=== PATIENT | female | born 1995 | race Caucasian/White ===

== ENCOUNTER 2016-07-06 12:53 | Emergency (ER) | payer MEDICAID ==
[2016-07-06] MEDS ORDERED: Sodium Chloride 0.9% 1,000 ML IV STA (14:19)
[2016-07-06] MEDS ORDERED: Sodium Chloride 0.9% 10 ML Syringe FLUSH PRN (14:19)
[2016-07-06] MEDS ORDERED: HYDROmorphone 0.5 MG/0.5 ML Syringe IVPUSH ONE ×2 (14:21→16:43)
[2016-07-06] MEDS ORDERED: Ondansetron 4 MG/2 ML SDV IVPUSH ONE (14:21)
--- NOTE | 2016-07-06 14:27 | EDM.PDOC ---
ED HPI RENAL/ - General Chief Complaint: Gastrointestinal Problem Stated Complaint: THROWING UP AFTER TONSILECTOMY Time Seen by Provider: 07/06/16 14:16 Source: Reports: Patient, RN notes reviewed History Limitations: Reports: No limitations - History of Present Illness INITIAL COMMENTS - FREE TEXT/NARRATIVE: 21-year-old female presents emergency department a complaint of nausea and vomiting she recently underwent tonsillectomy was prescribed an antiemetic as well as liquid hydrocodone unfortunately because of the nausea and vomiting she' s not been able to keep the medication for pain down this particular event has been ongoing for last 3 days, denies any fevers no shortness of breath or chest pain - Related Data Allergies/ADRs: Allergies Allergy/AdvReac Type Severity Reaction Status Date / Time Sulfa (Sulfonamide Allergy Rash Verified 07/06/16 13:52 Antibiotics) Home Meds: Home Meds Albuterol Sulfate [Albuterol Sulfate HFA] 2 puff INH ASDIRECTED PRN 06/11/13 [ History] Ethinyl Estradiol/Drospirenone [Drospirenone-Ee 3-0.02 mg Tab] 1 tab PO DAILY [History] Past Medical History HEENT History: Reports: Other (see below) Other HEENT History: strep throat, chronic cryptitis of tonsil Cardiovascular History: Reports: Syncope 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: Reports: Asthma 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: Neurological History: Reports: Seizure Dermatologic History: Reports: Other (see below) Other Dermatologic History: red, itchy skin to face with stress - Infectious Disease History Infectious Disease History: Reports: Chicken pox - Past Surgical History HEENT Surgical History: Reports: Adenoidectomy, Tonsillectomy Female Surgical History: Reports: Other (see below) Other Female Surgeries/Procedures: galactorrhea of left breast, chlamydia infection Social & Family History - Tobacco Use Smoking Status *Q: Never Smoker Years of Tobacco use: 7 Packs/Tins Daily: 0.2 Used Tobacco, but Quit: Yes Month Tobacco Last Used: June Second Hand Smoke Exposure: No - Caffeine Use Caffeine Use: Reports: Coffee, Soda - Alcohol Use Days Per Week of Alcohol Use: 0 - Recreational Drug Use Recreational Drug Use: No - Living Situation & Occupation Living situation: Reports: with significant other (lives at [place], [place].) ED ROS GENERAL - Review of Systems Review Of Systems: See Below Constitutional: Denies: fever, chills HEENT: Reports: Throat pain, Throat swelling Respiratory: Reports: no symptoms Cardiovascular: Reports: No symptoms GI/Abdominal: Reports: Nausea, Vomiting. Denies: Abdominal pain : Reports: no symptoms Musculoskeletal: Reports: no symptoms Skin: Reports: no symptoms ED EXAM, RENAL/ - Physical Exam Exam: See Below Text/Narrative:: General: Female, in mild discomfort secondary to nausea vomiting, alert and oriented x3 HEENT: head is atraumatic normocephalic, eyes pupils equal round reactive to light and accommodation sclera clear no conjunctivitis appreciated. Ears tympanic membranes clear and mahmood landmarks and light reflex are present bilaterally canals are clear. Nose no septal deviation, nares are clear, no blood present. Mouth mucosa is moist and pink, scarring appreciated in the posterior pharynx no active bleeding, tongue is midline, dentition is intact. Neck: Supple no thyromegaly no tracheal deviation. Nodes: Cervical nodes subclavicular nodes nontender no palpable lymphadenopathy noted. Lungs: clear to auscultation bilaterally with symmetrical respirations, no adventitious noise appreciated. CV: Regular rate and rhythm S1 and S2 appreciated no murmurs rubs or gallops noted. Abdomen: Soft, nontender, no palpable masses or organomegaly appreciated, no distention no guarding bowel sounds are present, Course - Vital Signs Last Recorded V/S: Last Vital Signs Temp 99.1 F 07/06/16 13:55 Pulse 87 07/06/16 16:19 Resp 14 07/06/16 16:19 BP 126/70 07/06/16 16:19 Pulse Ox 99 07/06/16 16:19 - Orders/Labs/Meds Orders: Active Orders 24 hr Category Date Time Status Peripheral IV Care [RC] . DIRECTED Care 07/06/16 14:19 Active Sodium Chloride 0.9% [Normal Saline] 1,000 ml Med 07/06/16 16:15 Active IV ASDIRECTED Sodium Chloride 0.9% [Saline Flush] Med 07/06/16 14:19 Active 10 ml FLUSH ASDIRECTED PRN Peripheral IV Insertion Adult [OM.PC] Urgent Oth 07/06/16 14:19 Ordered Medication Orders Sodium Chloride (Normal Saline) 1,000 mls @ 999 mls/hr IV ASDIRECTED ELBA Last Admin: 07/06/16 16:21 Dose: 999 mls/hr Sodium Chloride (Saline Flush) 10 ml FLUSH ASDIRECTED PRN PRN Reason: Keep Vein Open Labs: Laboratory Tests 07/06/16 07/06/16 07/06/16 Range/Units 14:31 14:31 17:08 WBC 7.2 (4.5-11.0) K/uL RBC 4.24 (3.30-5.50) M/uL Hgb 12.2 (12.0-15.0) g/dL Hct 36.4 (36.0-48.0) % MCV 86 (80-98) fL MCH 29 (27-31) pg MCHC 34 (32-36) % Plt Count 280 (150-400) K/uL Neut % (Auto) 67 H (36-66) % Lymph % (Auto) 18 L (24-44) % [place] % (Auto) 14 H (2-6) % Eos % (Auto) 1 L (2-4) % Baso % (Auto) 0 (0-1) % Sodium 138 L (140-148) mmol/L Potassium 4.0 (3.6-5.2) mmol/L Chloride 100 (100-108) mmol/L Carbon Dioxide 26 (21-32) mmol/L Anion Gap 16.0 H (5.0-14.0) mmol/L BUN 7 (7-18) mg/dL Creatinine 0.8 (0.6-1.0) mg/dL Est Cr Clr Drug Dosing 103.26 mL/min Estimated GFR (MDRD) > 60 (>60) Glucose 79 (74-106) mg/dL Calcium 8.6 (8.5-10.1) mg/dL Urine Color Yellow Urine Appearance Slightly cloudy Urine pH 6.0 (4.5-8.0) Ur Specific [place] 1.020 (1.008-1.030) Urine Protein Negative (NEGATIVE) mg/dL Urine Glucose (UA) Normal (NEGATIVE) mg/dL Urine Ketones 50 H (NEGATIVE) mg/dL Urine Occult Blood Moderate (NEGATIVE) Urine Nitrite Negative (NEGATIVE) Urine Bilirubin Negative (NEGATIVE) Urine Urobilinogen Normal (NORMAL) mg/dL Ur Leukocyte Esterase Negative (NEGATIVE) Urine RBC Not seen (0-5) Urine WBC 0-5 (0-5) Ur Epithelial Cells Many Amorphous Sediment Not seen Urine Bacteria Moderate Urine Mucus Not seen Meds: Medications Generic Name Dose Route Start Last Admin Trade Name Tegan PRN Reason Stop Dose Admin Sodium Chloride 1,000 mls @ 999 mls/hr 07/06/16 16:15 07/06/16 16:21 Normal Saline IV 999 mls/hr ASDIRECTED ELBA Administration Sodium Chloride 10 ml 07/06/16 14:19 Saline Flush FLUSH ASDIRECTED PRN Keep Vein Open Discontinued Medications Generic Name Dose Route Start Last Admin Trade Name Tegan PRN Reason Stop Dose Admin Hydromorphone HCl 0.5 mg 07/06/16 14:21 07/06/16 15:00 Dilaudid IVPUSH 07/06/16 14:22 0.5 mg ONETIME ONE Administration Hydromorphone HCl 0.5 mg 07/06/16 16:43 07/06/16 17:35 Dilaudid IVPUSH 07/06/16 16:44 0.5 mg ONETIME ONE Administration Sodium Chloride 1,000 mls @ 999 mls/hr 07/06/16 14:19 07/06/16 14:58 Normal Saline IV 07/06/16 15:19 999 mls/hr .BOLUS STA Administration Ondansetron HCl 4 mg 07/06/16 14:21 07/06/16 14:59 Zofran IVPUSH 07/06/16 14:22 4 mg ONETIME ONE Administration Departure - Departure Time of Disposition: 18:04 Disposition: Home, Self-Care 01 Condition: good Clinical Impression: Nausea & vomiting Qualifiers: Vomiting type: unspecified Vomiting Intractability: non-intractable Qualified Code(s): R11.2 - Nausea with vomiting, unspecified Forms: ED Department Discharge Additional Instructions: continue with your medications prescribed by surgery, keep your follow up appointment with surgery - My Orders Last 24 Hours: My Active Orders 07/06/16 14:19 Peripheral IV Care [RC] . DIRECTED Sodium Chloride 0.9% [Saline Flush] 10 ml FLUSH ASDIRECTED PRN Peripheral IV Insertion Adult [OM.PC] Urgent 07/06/16 16:15 Sodium Chloride 0.9% [Normal Saline] 1,000 ml IV ASDIRECTED - Assessment/Plan Last 24 Hours: My Active Orders 07/06/16 14:19 Peripheral IV Care [RC] . DIRECTED Sodium Chloride 0.9% [Saline Flush] 10 ml FLUSH ASDIRECTED PRN Peripheral IV Insertion Adult [OM.PC] Urgent 07/06/16 16:15 Sodium Chloride 0.9% [Normal Saline] 1,000 ml IV ASDIRECTED Plan: Assessment Acuity = acute Site and laterality = nausea and vomiting complicated patient with postop day 3 tonsillectomy Etiology = difficulty keeping pain medication and antiemetics down secondary to surgery Manifestations = none Location of injury = home Lab values = CBC, BMP unremarkable, urinalysis unremarkable Plan should significant improvement with 2 L of fluid Dilaudid provided for pain control the plan is to discharge home resume her postoperative medications keep her followup appointment with surgery Patient was in agreement with the plan all questions were answered, they were instructed to return to the emergency department or call for worsening symptoms. This note was dictated using [place] voice recognition software please call with any questions.
[2016-07-06] MEDS ORDERED: Sodium Chloride 0.9% 1,000 ML IV SCH (16:15)
[2016-07-06 16:24] VITALS: BP 126/70
== END 2016-07-06 18:15 | disposition home or self-care (01) ==
LOC: JP.ED 12:53
DX: R11.2 Nausea with vomiting, unspecified (principal); J45.909 Unspecified asthma, uncomplicated; Z88.2 Allergy status to sulfonamides; Z79.899 Other long term (current) drug therapy; Z98.890 Other specified postprocedural states
CPT/HCPCS: 36415; 80048; 81001; 85025; 96361; 96374; 96375; 99284; J1170; J2405; J7040

== ENCOUNTER 2016-07-08 23:42 | Emergency (ER) | payer MEDICAID ==
[2016-07-09 00:06] VITALS: BP 149/72
[2016-07-09] MEDS ORDERED: HYDROmorphone 1 MG/ML Syringe IVPUSH ONE (00:39)
[2016-07-09] MEDS ORDERED: Ondansetron 4 MG/2 ML SDV IVPUSH ONE (00:40)
[2016-07-09] MEDS ORDERED: Sodium Chloride 0.9% 1,000 ML IV SCH (00:45)
--- NOTE | 2016-07-09 00:48 | EDM.PDOC ---
ED HPI ENT - General Chief Complaint: ENT Problem Stated Complaint: COMPLICATIONS FROM SURGERY Time Seen by Provider: 07/09/16 00:16 Source: Reports: Patient History Limitations: Reports: No limitations - History of Present Illness INITIAL COMMENTS - FREE TEXT/NARRATIVE: Postop pain: Is a 20-year-old female presents emergency room with complaints of severe throat pain secondary to her tonsillectomy on July 01. She reports sharp pain has tried to drink fluids but it burned, pain so intense she decided to come to ER for evaluation. She has approximately 100 mL of bile like emesis in emesis bag. She was seen on the with similar concerns. 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) - Related Data Allergies/ADRs: Allergies Allergy/AdvReac Type Severity Reaction Status Date / Time hydrocodone Allergy Rash Verified 07/09/16 00:09 Sulfa (Sulfonamide Allergy Rash Verified 07/09/16 00:06 Antibiotics) Home Meds: Home Meds Albuterol Sulfate [Albuterol Sulfate HFA] 2 puff INH ASDIRECTED PRN 06/11/13 [ History] Ethinyl Estradiol/Drospirenone [Drospirenone-Ee 3-0.02 mg Tab] 1 tab PO DAILY [History] Acetaminophen/Codeine [Tylenol/Codeine 120-12 MG/5 ML] 1 dose PO ASDIRECTED 06/26 [History] Ondansetron [Ondansetron ODT] 1 tab SL ASDIRECTED 07/09/16 [History] Past Medical History - Past Health History Medical/Surgical History: Denies Medical/Surgical History HEENT History: Reports: Other (see below) Other HEENT History: strep throat, chronic cryptitis of tonsil Cardiovascular History: Reports: Syncope 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: Reports: 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: Neurological History: Reports: Seizure Dermatologic History: Reports: Other (see below) Other Dermatologic History: red, itchy skin to face with stress - Infectious Disease History Infectious Disease History: Reports: Chicken pox - Past Surgical History HEENT Surgical History: Reports: Adenoidectomy, Tonsillectomy Female Surgical History: Reports: Other (see below) Other Female Surgeries/Procedures: galactorrhea of left breast, chlamydia infection Social & Family History - Tobacco Use Smoking Status *Q: Never Smoker Years of Tobacco use: 7 Packs/Tins Daily: 0.2 Used Tobacco, but Quit: Yes Month Tobacco Last Used: June Second Hand Smoke Exposure: No - Caffeine Use Caffeine Use: Reports: Coffee, Soda - Alcohol Use Days Per Week of Alcohol Use: 0 - Recreational Drug Use Recreational Drug Use: No - Living Situation & Occupation Living situation: Reports: with significant other (lives at [facility]) ED ROS ENT - Review of Systems Review Of Systems: See Below Constitutional: Reports: fatigue, decreased appetite HEENT: Reports: Throat pain (Tonsillectomy on July 01) Respiratory: Reports: no symptoms Cardiovascular: Reports: No symptoms Endocrine: Reports: no symptoms GI/Abdominal: Reports: Nausea : Reports: no symptoms Musculoskeletal: Reports: no symptoms Neurological: Reports: no symptoms Psychiatric: Reports: No symptoms Hematologic/Lymphatic: Reports: no symptoms Immunologic: Reports: no symptoms ED EXAM, ENT - Physical Exam Exam: See Below Exam Limited By: Other (Crying) General Appearance: alert, mild distress Eye Exam: bilateral eye: normal inspection Ears: normal external exam, normal canal, hearing grossly normal, normal TMs Nose: normal inspection, normal mucousa, no blood Mouth/Throat: Pharyngeal erythema (Post surgery) Head: atraumatic, normocephalic Neck: tender lateral Respiratory/Chest: no respiratory distress, lungs clear, normal breath sounds, no accessory muscle use, chest non-tender Cardiovascular: normal peripheral pulses, regular rate, rhythm, no edema, no gallop, no JVD, no murmur, no rub GI/Abdominal: soft Back: normal inspection, full range of motion Extremities: normal inspection, normal range of motion, non-tender, no pedal edema, normal capillary refill Neurological: alert, oriented, CN II-XII intact, normal cognition, normal gait, normal reflexes, no motor/sensory deficits Psychiatric: tearful Skin: Warm, Dry, Intact, Normal color, No rash Lymphatic: no adenopathy Course - Vital Signs Last Recorded V/S: Last Vital Signs Temp 37.7 C 07/09/16 00:05 Pulse 95 07/09/16 00:05 Resp 16 03/02/17 00:05 BP 149/72 H 07/09/16 00:05 Pulse Ox 98 07/09/16 00:05 - Orders/Labs/Meds Meds: Medications Discontinued Medications Generic Name Dose Route Start Last Admin Trade Name Tegan PRN Reason Stop Dose Admin Hydromorphone HCl 1 mg 07/09/16 00:39 07/09/16 00:55 Dilaudid IVPUSH 07/09/16 00:40 1 mg ONETIME ONE Administration Sodium Chloride 1,000 mls @ 999 mls/hr 07/09/16 00:45 07/09/16 00:54 Normal Saline IV 999 mls/hr ASDIRECTED ELBA Administration Ondansetron HCl 4 mg 07/09/16 00:40 07/09/16 00:53 Zofran IVPUSH 07/09/16 00:41 4 mg ONETIME ONE Administration - Re-Assessments/Exams Free Text/Narrative Re-Assessment/Exam: 07/09/16 00:50 Normal saline 1 L over one hour, Dilaudid 1 mg IV, Zofran 4 mg IV. Will have her significant other transport her back to her home. Departure - Departure Time of Disposition: 01:55 Disposition: Home, Self-Care 01 Condition: good Clinical Impression: Post-op pain Nausea & vomiting Qualifiers: Vomiting type: unspecified Vomiting Intractability: non-intractable Qualified Code(s): R11.2 - Nausea with vomiting, unspecified Referrals: PCP,None [Primary Care Provider] - Forms: ED Department Discharge Care Plan Goals: Post -op Pain due to Tonsillectomy and adnoids removed; -IV fluids 1 L and Dilaudid 1 mg IV Zofran 4 mg IV -Advised return home, rest, push fluids, take her medications as prescribed. Followup with primary care providers or ENT as scheduled Return to clinic or ER if not improved or symptoms worsen
== END 2016-07-09 01:55 | disposition home or self-care (01) ==
LOC: JP.ED 23:42
DX: R07.0 Pain in throat (principal); G89.18 Other acute postprocedural pain; R11.2 Nausea with vomiting, unspecified; J45.909 Unspecified asthma, uncomplicated; Z79.899 Other long term (current) drug therapy; Z88.2 Allergy status to sulfonamides; Z88.5 Allergy status to narcotic agent; Z98.890 Other specified postprocedural states
CPT/HCPCS: 96374; 96375; 99283; J1170; J2405; J7040

== ENCOUNTER 2017-06-27 18:04 | Emergency (ER) | payer MEDICAID ==
[2017-06-27 18:18] VITALS: BP 120/67
[2017-06-27] MEDS ORDERED: Sodium Chloride 0.9% 10 ML Syringe FLUSH PRN (18:56)
[2017-06-27] MEDS ORDERED: Prochlorperazine 10 MG/2 ML SDV IVPUSH ONE (18:58)
[2017-06-27] MEDS ORDERED: Sodium Chloride 0.9% 1,000 ML IV SCH (19:00)
--- NOTE | 2017-06-27 20:25 | EDM.PDOC ---
ED HPI GENERAL MEDICAL PROBLEM - General Chief Complaint: Gastrointestinal Problem Stated Complaint: VOMITING Time Seen by Provider: 06/27/17 20:12 Source of Information: Reports: Patient History Limitations: Reports: No Limitations - History of Present Illness INITIAL COMMENTS - FREE TEXT/NARRATIVE: This lady comes in complaining of vomiting. She's and by her dates she is now about 11 weeks gestation. She doesn't really think she is that for a long because of blood test was done a while back and apparently had hCG level was done which would indicate she was at maybe 6 weeks or so. She says sometimes her menstrual periods are regular and sometimes they are irregular therefore her dates might not be completely reliable. She's been vomiting everything she eats or drinks for the past 4 days. She feels like she might be dehydrated because sometimes when she stands she gets dizzy for a while. She is here expecting some IV fluids. - Related Data Allergies Allergy/AdvReac Type Severity Reaction Status Date / Time hydrocodone Allergy Rash Verified 06/27/17 18:36 Sulfa (Sulfonamide Allergy Rash Verified 06/27/17 18:36 Antibiotics) Home Meds: Home Meds Albuterol Sulfate [Albuterol Sulfate HFA] 2 puff INH ASDIRECTED PRN 06/11/13 [ History] Ondansetron [Ondansetron ODT] 1 tab SL ASDIRECTED 07/09/16 [History] Vits #93/Iron Fum/FA [ Formula Tablet] 1 tab PO DAILY 06/27/17 [History] Sertraline [Zoloft] 1 tab PO DAILY 06/27/17 [History] Past Medical History - Past Health History Medical/Surgical History: Denies Medical/Surgical History HEENT History: Reports: Other (See Below) Other HEENT History: strep throat, chronic cryptitis of tonsil Cardiovascular History: Reports: Syncope 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: Reports: Asthma 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: Neurological History: Reports: Seizure Psychiatric History: Reports: Anxiety, Depression Dermatologic History: Reports: Other (See Below) Other Dermatologic History: red, itchy skin to face with stress - Infectious Disease History Infectious Disease History: Reports: Chicken Pox - Past Surgical History HEENT Surgical History: Reports: Tonsillectomy Social & Family History - Tobacco Use Smoking Status *Q: Former Smoker Years of Tobacco use: 7 Packs/Tins Daily: 0.2 Used Tobacco, but Quit: Yes Month Tobacco Last Used: june 2017 Second Hand Smoke Exposure: No - Caffeine Use Caffeine Use: Reports: Coffee, Soda - Alcohol Use Days Per Week of Alcohol Use: 0 - Recreational Drug Use Recreational Drug Use: No - Living Situation & Occupation Living situation: Reports: with Significant Other ED ROS GENERAL - Review of Systems Review Of Systems: See Below Constitutional: Denies: Fever, Chills HEENT: Reports: No Symptoms Respiratory: Reports: No Symptoms Cardiovascular: Reports: No Symptoms Endocrine: Reports: No Symptoms GI/Abdominal: Reports: Vomiting. Denies: Abdominal Pain, Diarrhea : Reports: No Symptoms Musculoskeletal: Denies: Muscle Pain Skin: Reports: No Symptoms Neurological: Reports: No Symptoms Psychiatric: Reports: No Symptoms ED EXAM - Physical Exam Exam: See Below Exam Limited By: No Limitations General Appearance: Alert, WD/WN, No Apparent Distress Eye Exam: Bilateral Eye: Normal Inspection Throat/Mouth: Normal Oropharynx Neck: Normal Inspection Respiratory/Chest: Lungs Clear Cardiovascular: Regular Rate, Rhythm GI/Abdominal Exam: Normal Bowel Sounds, Non-Tender, Other (The nurse placed a D[place]one on the patient and was unable to hear a heartbeat. I offered to check this myself but the patient said that all she wanted was some IV fluid and didn't care to have that done again) Extremities: Normal Inspection Neurological: Alert, Oriented, Sensory/Motor Deficit Skin Exam: Warm, Dry Course - Vital Signs Last Recorded V/S: Last Vital Signs Temp 36.3 C 06/27/17 18:20 Pulse 64 06/27/17 18:20 Resp 18 06/27/17 18:20 BP 120/67 06/27/17 18:20 Pulse Ox 100 06/27/17 18:20 - Orders/Labs/Meds Orders: Active Orders 24 hr Category Date Time Status Sodium Chloride 0.9% [Normal Saline] 1,000 ml Med 06/27/17 19:00 Active IV ASDIRECTED Sodium Chloride 0.9% [Saline Flush] Med 06/27/17 18:56 Active 10 ml FLUSH ASDIRECTED PRN Saline Lock Insert [OM.PC] Urgent Oth 06/27/17 18:56 Ordered Medication Orders Sodium Chloride (Normal Saline) 1,000 mls @ 999 mls/hr IV ASDIRECTED ELBA Last Admin: 06/27/17 19:16 Dose: 999 mls/hr Sodium Chloride (Saline Flush) 10 ml FLUSH ASDIRECTED PRN PRN Reason: Keep Vein Open Labs: Laboratory Tests 06/27/17 06/27/17 Range/Units 19:18 19:18 WBC 4.6 (4.5-11.0) K/uL RBC 4.33 (3.30-5.50) M/uL Hgb 12.7 (12.0-15.0) g/dL Hct 37.6 (36.0-48.0) % MCV 87 (80-98) fL MCH 29 (27-31) pg MCHC 34 (32-36) % Plt Count 323 (150-400) K/uL Neut % (Auto) 45 (36-66) % Lymph % (Auto) 37 (24-44) % [place] % (Auto) 17 H (2-6) % Eos % (Auto) 1 L (2-4) % Baso % (Auto) 0 (0-1) % Sodium 137 L (140-148) mmol/L Potassium 3.8 (3.6-5.2) mmol/L Chloride 102 (100-108) mmol/L Carbon Dioxide 24 (21-32) mmol/L Anion Gap 14.8 H (5.0-14.0) mmol/L BUN 6 L (7-18) mg/dL Creatinine 0.8 (0.6-1.0) mg/dL Est Cr Clr Drug Dosing 102.39 mL/min Estimated GFR (MDRD) > 60 (>60) Glucose 79 (74-106) mg/dL Calcium 8.6 (8.5-10.1) mg/dL Meds: Medications Generic Name Dose Route Start Last Admin Trade Name Freq PRN Reason Stop Dose Admin Sodium Chloride 1,000 mls @ 999 mls/hr 06/27/17 19:00 06/27/17 19:16 Normal Saline IV 999 mls/hr ASDIRECTED ELBA Administration Sodium Chloride 10 ml 06/27/17 18:56 Saline Flush FLUSH ASDIRECTED PRN Keep Vein Open Discontinued Medications Generic Name Dose Route Start Last Admin Trade Name Freq PRN Reason Stop Dose Admin Prochlorperazine Edisylate 5 mg 06/27/17 18:58 02/18/18 19:20 Compazine IVPUSH 02/18/18 18:59 5 mg ONETIME ONE Administration - Re-Assessments/Exams Free Text/Narrative Re-Assessment/Exam: 06/27/17 20:20 The patient received 1 L IV normal saline. She also received Compazine 5 mg IV when she was rechecked she's sleeping so I discussed with her . I also discussed use of doxylamine and vitamin B6 and gave her a [employer] handout which detailed the treatment approach to hyperemesis gravidarum. It also indicated the dosages of the 2 medications mentioned. Departure - Departure Time of Disposition: 20:21 Disposition: Home, Self-Care 01 Condition: Fair Clinical Impression: Hyperemesis gravidarum - Discharge Information Referrals: Sheri Saucedo CNM [Primary Care Provider] - Additional Instructions: Try taking vitamin D6 or Pyridoxine along with doxylamine or Unisom. The Unisom is a [id number] sleeping medication which will cause some sedation. The handout shows the dosages for these 2 medications. A lot of people will take the Unisom just once a day however to avoid sedation while working and so forth. You may continue the Zofran but note that the dosage can be increased up to 8 mg every 6-8 hours. The IV medication you received here was Compazine 5 mg which is very similar to the promethazine or Phenergan it's mentioned in the article. It causes a lot of sedation. You should not plan to work or drive for the next 12 hours. Your lab work was normal - My Orders Last 24 Hours: My Active Orders 06/27/17 18:56 Sodium Chloride 0.9% [Saline Flush] 10 ml FLUSH ASDIRECTED PRN Saline Lock Insert [OM.PC] Urgent 06/27/17 19:00 Sodium Chloride 0.9% [Normal Saline] 1,000 ml IV ASDIRECTED - Assessment/Plan Last 24 Hours: My Active Orders 06/27/17 18:56 Sodium Chloride 0.9% [Saline Flush] 10 ml FLUSH ASDIRECTED PRN Saline Lock Insert [OM.PC] Urgent 06/27/17 19:00 Sodium Chloride 0.9% [Normal Saline] 1,000 ml IV ASDIRECTED
== END 2017-06-27 20:34 | disposition home or self-care (01) ==
LOC: JP.ED 18:04
DX: O21.0 Mild hyperemesis gravidarum (principal); O99.511 Diseases of the respiratory system complicating pregnancy, first trimester; J45.909 Unspecified asthma, uncomplicated; Z87.891 Personal history of nicotine dependence; O99.341 Other mental disorders complicating pregnancy, first trimester; F32.9 Major depressive disorder, single episode, unspecified; Z79.899 Other long term (current) drug therapy; Z88.5 Allergy status to narcotic agent; Z88.2 Allergy status to sulfonamides; Z3A.11 11 weeks gestation of pregnancy
CPT/HCPCS: 36415; 80048; 85025; 96361; 96374; 99284; J0780; J7040; J7030

== ENCOUNTER 2017-07-14 22:01 | Emergency (ER) | payer MEDICAID ==
[2017-07-14 22:31] VITALS: BP 118/54
[2017-07-14] MEDS ORDERED: Sodium Phosphate,Monobasic/Sodium Phosphate,Dibasic Enema 133 ML Bottle RECTAL ONE (22:49)
--- NOTE | 2017-07-14 22:58 | EDM.PDOC ---
ED HPI GENERAL MEDICAL PROBLEM - General Chief Complaint: Gastrointestinal Problem Stated Complaint: ABDOMINAL PAIN / CONSTIPATION Time Seen by Provider: 07/14/17 22:39 Source of Information: Reports: Patient History Limitations: Reports: No Limitations - History of Present Illness INITIAL COMMENTS - FREE TEXT/NARRATIVE: Constipation: 3 para 2 female presents emergency room with concerns of no regular bowel movement for the past 2 weeks. She reports stools are hard round balls very painful she is having crampy feelings from this. She denies any spotting vaginal bleeding contractions or other concerns related to . She has taken MiraLAX daily without relief. 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 Medication(s) left abd Pain Score (Numeric/FACES): 7 - Related Data Allergies Allergy/AdvReac Type Severity Reaction Status Date / Time hydrocodone Allergy Rash Verified 07/14/17 22:33 Sulfa (Sulfonamide Allergy Rash Verified 07/14/17 22:33 Antibiotics) Home Meds: Home Meds Albuterol Sulfate [Albuterol Sulfate HFA] 2 puff INH ASDIRECTED PRN 06/11/13 [ History] Ondansetron [Ondansetron ODT] 1 tab SL ASDIRECTED 07/09/16 [History] Vits #93/Iron Fum/FA [ Formula Tablet] 1 tab PO DAILY 06/27/17 [History] Past Medical History - Past Health History Medical/Surgical History: Denies Medical/Surgical History HEENT History: Reports: Other (See Below) Other HEENT History: strep throat, chronic cryptitis of tonsil Cardiovascular History: Reports: Syncope 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: Reports: Asthma 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: Neurological History: Reports: Seizure Psychiatric History: Reports: Anxiety, Depression Dermatologic History: Reports: Other (See Below) Other Dermatologic History: red, itchy skin to face with stress - Infectious Disease History Infectious Disease History: Reports: Chicken Pox - Past Surgical History HEENT Surgical History: Reports: Tonsillectomy Female Surgical History: Reports: Other (See Below) Social & Family History - Tobacco Use Smoking Status *Q: Former Smoker Years of Tobacco use: 7 Packs/Tins Daily: 0.2 Used Tobacco, but Quit: Yes Month Tobacco Last Used: jun Second Hand Smoke Exposure: No - Caffeine Use Caffeine Use: Reports: None - Alcohol Use Days Per Week of Alcohol Use: 0 - Recreational Drug Use Recreational Drug Use: No - Living Situation & Occupation Living situation: Reports: with Significant Other ED ROS GENERAL - Review of Systems Review Of Systems: See Below Constitutional: Reports: Other (Uncomfortable due to constipation) HEENT: Reports: No Symptoms Respiratory: Reports: No Symptoms Cardiovascular: Reports: No Symptoms Endocrine: Reports: No Symptoms GI/Abdominal: Reports: Abdominal Pain, Constipation : Reports: No Symptoms, Other ( at 9 weeks) Musculoskeletal: Reports: No Symptoms Skin: Reports: No Symptoms Neurological: Reports: No Symptoms Psychiatric: Reports: No Symptoms Hematologic/Lymphatic: Reports: No Symptoms Immunologic: Reports: No Symptoms ED EXAM, GENERAL - Physical Exam Exam: See Below Exam Limited By: No Limitations General Appearance: Alert, WD/WN, Mild Distress, Other (Tearful during exam) Respiratory/Chest: No Respiratory Distress, Lungs Clear, Normal Breath Sounds, No Accessory Muscle Use, Chest Non-Tender Cardiovascular: Normal Peripheral Pulses, Regular Rate, Rhythm, No Edema, No Gallop, No JVD, No Murmur, No Rub GI/Abdominal: Distended, Tender, Other (No heart tones at this time due to early gestational age.) (Female) Exam: Deferred Rectal (Female) Exam: Deferred Back Exam: Normal Inspection, Full Range of Motion Psychiatric: Tearful Skin Exam: Warm, Dry, Intact, Normal Color, No Rash Lymphatic: No Adenopathy Course - Vital Signs Last Recorded V/S: Last Vital Signs Temp 36.1 C 07/14/17 22:38 Pulse 83 07/14/17 22:38 Resp 16 07/14/17 22:38 BP 118/54 L 07/14/17 22:38 Pulse Ox 100 07/14/17 22:38 - Orders/Labs/Meds Meds: Medications Discontinued Medications Generic Name Dose Route Start Last Admin Trade Name Freq PRN Reason Stop Dose Admin Sodium Biphosphate/Sodium Phosphate 133 ml 07/14/17 22:49 07/14/17 22:53 Fleet Enema RECTAL 07/14/17 22:50 133 ml ONETIME ONE Administration - Re-Assessments/Exams Free Text/Narrative Re-Assessment/Exam: 07/14/17 23:03 Will give fleets enema to help relieve constipation. 07/14/17 23:32 Patient reports excellent results with fleets enema. No longer has abdominal pain and cramping. feels ready for discharge to home, plans to drink plenty of water and take her medication as prescribed Departure - Departure Time of Disposition: 23:33 Disposition: Home, Self-Care 01 Condition: Good Clinical Impression: Constipation during Qualifiers: Trimester: first trimester Qualified Code(s): O99.611 - Diseases of the digestive system complicating , first trimester - Discharge Information Instructions: Constipation, Adult, [id number] Referrals: Sheri Saucedo CNM [Primary Care Provider] - Forms: ED Department Discharge Care Plan Goals: Constipation in -Advised to push fluids drink at least 6-8 glasses of water per day -Prescription for Dulcolax capsules 100 mg 1 twice a day as needed for constipation -Prescription for MiraLAX suspension mix 1 capful and a 8 ounce glass of water and drink daily for constipation Discussed medication, drinking plenty of fluids, follow-up with primary care if not improved or symptoms worsen. Return to emergency room for any increased pain, fever, chills, nausea, vomiting , diarrhea, rash or not improved Patient and her significant other agree with plan of care. - Problem List & Annotations (1) Constipation during SNOMED Code(s): 91643469 Code(s): O99.619 - DISEASES OF THE DGSTV SYS COMP , UNSP TRIMESTER; K59.00 - CONSTIPATION, UNSPECIFIED Status: Acute Priority: High Current Visit: Yes Qualifiers: Trimester: first trimester Qualified Code(s): O99.611 - Diseases of the digestive system complicating , first trimester; K59.00 - Constipation , unspecified; K59.00 - Constipation, unspecified - Problem List Review Problem List Initiated/Reviewed/Updated: Yes - Assessment/Plan Plan: Constipation in -Advised to push fluids drink at least 6-8 glasses of water per day -Prescription for Dulcolax capsules 100 mg 1 twice a day as needed for constipation -Prescription for MiraLAX suspension mix 1 capful and a 8 ounce glass of water and drink daily for constipation Discussed medication, drinking plenty of fluids, follow-up with primary care if not improved or symptoms worsen. Return to emergency room for any increased pain, fever, chills, nausea, vomiting , diarrhea, rash or not improved Patient and her significant other agree with plan of care.
== END 2017-07-14 23:42 | disposition home or self-care (01) ==
LOC: JP.ED 22:01
DX: O99.611 Diseases of the digestive system complicating pregnancy, first trimester (principal); K59.00 Constipation, unspecified; Z88.5 Allergy status to narcotic agent; Z88.2 Allergy status to sulfonamides; Z87.891 Personal history of nicotine dependence; Z3A.09 9 weeks gestation of pregnancy
CPT/HCPCS: 99284; A9270

== ENCOUNTER 2017-08-05 18:08 | Emergency (ER) | payer MEDICAID ==
[2017-08-05] MEDS ORDERED: Ondansetron 4 MG/2 ML SDV IVPUSH ONE (19:18)
[2017-08-05] MEDS ORDERED: LORazepam 2 MG/ML SDV IVPUSH ONE (19:18)
[2017-08-05] MEDS ORDERED: Sodium Chloride 0.9% 1,000 ML IV SCH (19:30)
--- NOTE | 2017-08-05 19:36 | EDM.PDOC ---
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 She saw her OB provider last week and he started her on oral Reglan it doesn't seem to be helping. Her symptoms haven't somewhat worse today, she feels she is losing weight and came in to get treatment. No vaginal bleeding, no significant pain. No hematemesis. Severity: Moderate Associated Symptoms: Reports: Malaise, Nausea/Vomiting. Denies: Fever/Chills, Headaches, Shortness of Breath Denies Pain Score (Numeric/FACES): 0 - Related Data Allergies Allergy/AdvReac Type Severity Reaction Status Date / Time hydrocodone Allergy Rash Verified 08/05/17 18:39 Sulfa (Sulfonamide Allergy Rash Verified 08/05/17 18:39 Antibiotics) Home Meds: Home Meds Albuterol Sulfate [Albuterol Sulfate HFA] 2 puff INH ASDIRECTED PRN 06/11/13 [ History] Ondansetron [Ondansetron ODT] 1 tab SL ASDIRECTED 07/09/16 [History] Vits #93/Iron Fum/FA [ Formula Tablet] 1 tab PO DAILY 06/27/17 [History] Past Medical History - Past Health History Medical/Surgical History: Denies Medical/Surgical History HEENT History: Reports: Other (See Below) Other HEENT History: strep throat, chronic cryptitis of tonsil Cardiovascular History: Reports: Syncope 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: Reports: Asthma 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: Neurological History: Reports: Seizure Psychiatric History: Reports: Anxiety, Depression Dermatologic History: Reports: Other (See Below) Other Dermatologic History: red, itchy skin to face with stress - Infectious Disease History Infectious Disease History: Reports: Chicken Pox - Past Surgical History HEENT Surgical History: Reports: Tonsillectomy Social & Family History - Tobacco Use Smoking Status *Q: Never Smoker Years of Tobacco use: 7 Packs/Tins Daily: 0.2 Used Tobacco, but Quit: Yes Month/Year Tobacco Last Used: jun Second Hand Smoke Exposure: No - Caffeine Use Caffeine Use: Reports: Tea - Alcohol Use Days Per Week of Alcohol Use: 0 - Recreational Drug Use Recreational Drug Use: No - Living Situation & Occupation Living situation: Reports: with Significant Other ED ROS GENERAL - Review of Systems Review Of Systems: See Below Constitutional: Reports: Malaise. Denies: Fever, Chills HEENT: Reports: No Symptoms Respiratory: Denies: Shortness of Breath Cardiovascular: Denies: Chest Pain GI/Abdominal: Reports: Nausea, Vomiting. Denies: Abdominal Pain, Diarrhea : Reports: No Symptoms Skin: Reports: No Symptoms Neurological: Denies: Headache ED EXAM - Physical Exam Exam: See Below Exam Limited By: No Limitations General Appearance: Alert, Mild Distress (Patient looks uncomfortable, occasionally retching with dry heaves) Eye Exam: Bilateral Eye: Normal Inspection (Eyes look hydrated, no jaundice) Throat/Mouth: Normal Inspection Respiratory/Chest: No Respiratory Distress, Lungs Clear Cardiovascular: Regular Rate, Rhythm GI/Abdominal Exam: Normal Bowel Sounds, Soft, Tender (Mild discomfort with palpation, no focal tenderness) Heart Tones: Present Heart Tones per Min: 144 Extremities: No: Pedal Edema Neurological: Alert, Oriented Psychiatric: Flat Affect Skin Exam: Warm, Dry Course - Vital Signs Last Recorded V/S: Last Vital Signs Temp 98.0 F 08/05/17 18:46 Pulse 78 08/05/17 20:07 Resp 14 08/05/17 20:07 BP 93/51 L 08/05/17 20:07 Pulse Ox 99 08/05/17 20:07 - Orders/Labs/Meds Labs: Laboratory Tests 08/05/17 08/05/17 Range/Units 19:17 19:17 WBC 6.3 (4.5-11.0) K/uL RBC 4.37 (3.30-5.50) M/uL Hgb 13.0 (12.0-15.0) g/dL Hct 37.5 (36.0-48.0) % MCV 86 (80-98) fL MCH 30 (27-31) pg MCHC 35 (32-36) % Plt Count 323 (150-400) K/uL Neut % (Auto) 60 (36-66) % Lymph % (Auto) 27 (24-44) % [place] % (Auto) 11 H (2-6) % Eos % (Auto) 1 L (2-4) % Baso % (Auto) 0 (0-1) % Sodium 136 L (140-148) mmol/L Potassium 3.5 L (3.6-5.2) mmol/L Chloride 102 (100-108) mmol/L Carbon Dioxide 25 (21-32) mmol/L Anion Gap 12.5 (5.0-14.0) mmol/L BUN 8 (7-18) mg/dL Creatinine 0.7 (0.6-1.0) mg/dL Est Cr Clr Drug Dosing 117.01 mL/min Estimated GFR (MDRD) > 60 (>60) Glucose 76 (74-106) mg/dL Calcium 8.9 (8.5-10.1) mg/dL Meds: Medications Discontinued Medications Generic Name Dose Route Start Last Admin Trade Name Freq PRN Reason Stop Dose Admin Sodium Chloride 1,000 mls @ 1,000 mls/hr 08/05/17 19:30 08/05/17 19:49 Normal Saline IV 1,000 mls/hr ASDIRECTED ELBA Administration Lorazepam 0.5 mg 08/05/17 19:18 08/05/17 19:53 Ativan IVPUSH 08/05/17 19:19 0.5 mg ONETIME ONE Administration Ondansetron HCl 4 mg 08/05/17 19:18 08/05/17 19:49 Zofran IVPUSH 08/05/17 19:19 4 mg ONETIME ONE Administration - Re-Assessments/Exams Free Text/Narrative Re-Assessment/Exam: 08/05/17 19:35 An IV was started, the patient was given 1 L of normal saline along with 4 mg of IV Zofran and 0.5 mg of IV Ativan. BMP, CBC were obtained. 08/05/17 20:32 CBC and BMP were reassuring. Patient responded fairly well to the IV medications. She will call her primary OB provider tomorrow to discuss possible suppositories for nausea control. Departure - Departure Time of Disposition: 21:15 Disposition: Home, Self-Care 01 Condition: Good Clinical Impression: Nausea and vomiting during - Discharge Information Instructions: Nausea and Vomiting, Adult, [id number] Referrals: Ethan Crystal MD [Primary Care Provider] - Forms: ED Department Discharge Care Plan Goals: Take frequent small amounts of fluids to stay hydrated. Call your OB provider tomorrow to discuss other options such as suppositories for nausea.
[2017-08-05 20:08] VITALS: BP 93/51
== END 2017-08-05 21:15 | disposition home or self-care (01) ==
LOC: JP.ED 18:08
DX: O21.9 Vomiting of pregnancy, unspecified (principal); O99.511 Diseases of the respiratory system complicating pregnancy, first trimester; J45.909 Unspecified asthma, uncomplicated; Z88.5 Allergy status to narcotic agent; Z88.2 Allergy status to sulfonamides; Z3A.12 12 weeks gestation of pregnancy; Z79.899 Other long term (current) drug therapy
CPT/HCPCS: 36415; 80048; 85025; 96361; 96374; 96375; 99284; J2060; J2405; J7040

== ENCOUNTER 2017-09-16 21:05 | Emergency (ER) | payer MEDICAID ==
[2017-09-16 21:25] VITALS: BP 117/73
--- NOTE | 2017-09-16 21:46 | EDM.PDOC ---
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 tissue in the toilet when going to the bathroom. She has not had bleeding or cramping. Did not save the tissue. Is worried she may have miscarried. 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 (see below) (none) Left Lower Abdomen Pain Score (Numeric/FACES): 2 - Related Data Allergies Allergy/AdvReac Type Severity Reaction Status Date / Time hydrocodone Allergy Rash Verified 09/16/17 21:22 Sulfa (Sulfonamide Allergy Rash Verified 09/16/17 21:22 Antibiotics) Home Meds: Home Meds Albuterol Sulfate [Albuterol Sulfate HFA] 2 puff INH ASDIRECTED PRN 06/11/13 [ History] Ondansetron [Ondansetron ODT] 1 tab SL ASDIRECTED 07/09/16 [History] Vits #93/Iron Fum/FA [ Formula Tablet] 1 tab PO DAILY 06/27/17 [History] Past Medical History - Past Health History Medical/Surgical History: Denies Medical/Surgical History HEENT History: Reports: Other (See Below) Other HEENT History: strep throat, chronic cryptitis of tonsil Cardiovascular History: Reports: Syncope 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: Reports: Asthma 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: Neurological History: Reports: Seizure Psychiatric History: Reports: Anxiety, Depression Dermatologic History: Reports: Other (See Below) Other Dermatologic History: red, itchy skin to face with stress - Infectious Disease History Infectious Disease History: Reports: Chicken Pox - Past Surgical History HEENT Surgical History: Reports: Tonsillectomy Social & Family History - Tobacco Use Smoking Status *Q: Never Smoker Second Hand Smoke Exposure: No - Caffeine Use Caffeine Use: Reports: Coffee, Tea - Recreational Drug Use Recreational Drug Use: No - Living Situation & Occupation Living situation: Reports: with Significant Other ED ROS GENERAL - Review of Systems Review Of Systems: See Below Constitutional: Reports: No Symptoms GI/Abdominal: Reports: No Symptoms : Reports: No Symptoms Skin: Reports: No Symptoms ED EXAM - Physical Exam Exam: See Below Exam Limited By: No Limitations General Appearance: Alert, WD/WN, No Apparent Distress Eye Exam: Bilateral Eye: Normal Inspection Nose: Normal Inspection Throat/Mouth: Normal Lips, Normal Voice, No Airway Compromise Head: Atraumatic, Normocephalic Neck: Normal Inspection, Supple, Non-Tender Respiratory/Chest: No Respiratory Distress, No Accessory Muscle Use Cardiovascular: Regular Rate, Rhythm Heart Tones: Present Heart Tones per Min: 140 Movement: Not Appreciated Neurological: Alert, Oriented, CN II-XII Intact, Normal Cognition, No Motor/ Sensory Deficits Psychiatric: Normal Affect, Normal Mood, Tearful Skin Exam: Warm, Dry, Intact, Normal Color, No Rash Course - Vital Signs Last Recorded V/S: Last Vital Signs Temp 36.8 C 09/16/17 21:27 Pulse 81 09/16/17 21:27 Resp 16 09/16/17 21:27 BP 117/73 09/16/17 21:27 Pulse Ox 100 09/16/17 21:27 Departure - Departure Time of Disposition: 21:45 Disposition: Home, Self-Care 01 Condition: Good Clinical Impression: First trimester - Discharge Information Referrals: Ethan Crystal MD [Primary Care Provider] - Forms: ED Department Discharge Additional Instructions: Show your picture to your provider. Return as needed. Continue present cares.
== END 2017-09-16 21:53 | disposition home or self-care (01) ==
LOC: JP.ED 21:05
DX: Z34.91 Encounter for supervision of normal pregnancy, unspecified, first trimester (principal); Z3A.18 18 weeks gestation of pregnancy; Z88.5 Allergy status to narcotic agent; Z88.0 Allergy status to penicillin
CPT/HCPCS: 99283

== ENCOUNTER 2019-06-01 08:06 | Day surgery (SDC) | payer MEDICAID ==
[2019-06-01] MEDS ORDERED: metroNIDAZOLE/Normal Saline 500 MG in Premix Bag 1 BAG IV ONE (08:45)
[2019-06-01] MEDS ORDERED: Albuterol/Ipratropium 3.0-0.5 MG/3 ML Neb Soln NEB ONE (08:45)
[2019-06-01] MEDS ORDERED: ceFAZolin 2 GM in Premix Bag 1 BAG IV ONE (08:45)
[2019-06-01] MEDS ORDERED: Sodium Chloride 0.9% 1,000 ML IV SCH (08:45)
[2019-06-01] MEDS: Bupivacaine 0.5% 50 ML MDV ONE ×2 (09:47→11:46)
[2019-06-01] MEDS: Lidocaine 1% with EPINEPHrine 1:100,000 50 ML MDV ONE ×2 (09:48→11:46)
[2019-06-01] MEDS ORDERED: Ropivacaine 38 ML, dexAMETHasone 8 MG, EPINEPHrine 0.4 MG, Sodium Chloride 0.9% 39.6 ML NERVRT SCH ×4 (10:00)
[2019-06-01] MEDS ORDERED: fentaNYL 250 MCG/5 ML SDV ONE (10:21)
[2019-06-01] MEDS ORDERED: Glycopyrrolate 0.2 MG/ML 5 ML MDV ONE (10:22)
[2019-06-01] MEDS ORDERED: Dexamethasone 4 MG/ML SDV ONE (10:22)
[2019-06-01] MEDS ORDERED: Rocuronium 50 MG/5 ML Vial ONE (10:22)
[2019-06-01] MEDS ORDERED: Ondansetron 4 MG/2 ML SDV ONE (10:22)
[2019-06-01] MEDS ORDERED: Neostigmine Methylsulfate 1 MG/ML 5 ML Syringe ONE (10:22)
[2019-06-01] MEDS ORDERED: Propofol 200 MG/20 ML SDV ONE (10:22)
[2019-06-01] MEDS ORDERED: fentaNYL 100 MCG/2 ML SDV ONE (12:12)
[2019-06-01] MEDS ORDERED: Meperidine PF 25 MG/ML Syringe IV ONE (12:25)
[2019-06-01] MEDS ORDERED: Docusate Sodium 100 MG Cap PO PRN (12:55)
[2019-06-01] MEDS ORDERED: Benzocaine/Cetylpyridinium/Menthol Lozenge MUCMEM PRN (12:55)
[2019-06-01] MEDS ORDERED: Zolpidem 5 MG Tab PO PRN (12:55)
[2019-06-01] MEDS ORDERED: hydrOXYzine HCL 100 MG/2 ML SDV IM PRN (12:55)
[2019-06-01] MEDS ORDERED: fentaNYL 100 MCG/2 ML SDV IVPUSH PRN (12:56)
[2019-06-01] MEDS: Acetaminophen/HYDROcodone 325-5 MG Tab PO PRN ×2 (13:29→18:18)
[2019-06-01] MEDS ORDERED: Ondansetron 4 MG/2 ML SDV IVPUSH PRN (14:34)
[2019-06-01] MEDS ORDERED: Scopolamine 1.5 MG Transdermal Patch TOP SCH (15:00)
[2019-06-01 18:22] VITALS: BP 118/68; PULSE 74
[2019-06-02] MEDS ORDERED: SCOPOLAMINE PATCH CHECK TOP SCH (09:00)
--- NOTE | 2019-06-02 09:29 | OR ---
DATE OF PROCEDURE: 06/01/2019 SURGEON: Phuc Rodriguez MD PROCEDURE PERFORMED: Laparoscopic cholecystectomy. PREOPERATIVE DIAGNOSIS: Cholecystitis. POSTOPERATIVE DIAGNOSIS: Cholecystitis. RISKS: Risks, benefits, alternatives, and limitations including, but not limited to, infection, bleeding, and DVT formation were explained to the patient, who wished to proceed. PROCEDURE IN DETAIL: The patient was placed in supine position. A supraumbilical incision was made and a Veress needle was used to enter the abdomen without abnormality. A drop test was performed without abnormality. The abdomen was subsequently insufflated. An Optiview trocar was then inserted. The abdomen subsequently insufflated. No evidence of enterotomy or injury was noted. Additional 10 and two 5 mm ports were entered under direct visualization. The gallbladder was retracted cephalad. The infundibulum was retracted inferolaterally. A "clear view" of the gallbladder was obtained with a single pulsatile structure into the gallbladder and a single non-pulsatile structure entering the gallbladder. These were clipped x3 and transected. The remaining one-third of the gallbladder was removed off the gallbladder bed without any difficulty. The gallbladder was then delivered through the superior port without difficulty. The gallbladder bed was inspected for any abnormal bleeding, none was noted. The air was dropped. No abnormal bleeding was noted. This was then irrigated. The clips were noted to be completely across. The wounds were closed with 3-0 Vicryl and 4- 0 Vicryl in an interrupted running fashion. The patient tolerated the procedure well. Phuc Rodriguez MD /[id number]
--- NOTE | 2019-06-02 09:33 | OR ---
DATE OF PROCEDURE: 06/01/2019 SURGEON: Phuc Rodriguez MD PROCEDURE: Transversus abdominis plane blocks, bilaterally. COMPLICATIONS: None. HAM CLERK: None. RISKS: Risks, benefits, alternatives, and limitations including, but not limited to infection, bleeding, injury to abdominal structures were explained to the patient, who wished to proceed. PROCEDURE IN DETAIL: The patient was placed in supine position. The left transversus plane was identified first using a 13 megahertz ultrasound probe. 80% of the solution was injected under direct visualization. The right side was then performed in same manner, same fashion, same technique, in the same sequence, and using the same equipment. The patient tolerated the procedure well. Phuc Rodriguez MD /[id number]
== END 2019-06-01 18:00 | disposition home or self-care (01) ==
LOC: JP.SDS 08:06 → JP.MS 12:55 → JP.SDS 18:00
PROVIDERS: ATTEND Surgery
DX: K81.1 Chronic cholecystitis (principal); J45.40 Moderate persistent asthma, uncomplicated; F32.9 Major depressive disorder, single episode, unspecified; F41.9 Anxiety disorder, unspecified; F17.210 Nicotine dependence, cigarettes, uncomplicated; Z88.8 Allergy status to other drugs, medicaments and biological substances; Z88.5 Allergy status to narcotic agent; Z88.2 Allergy status to sulfonamides; Z79.899 Other long term (current) drug therapy
CPT/HCPCS: 36415; 80053; 81025; 85027; 88304; 94640; A9270-GY; J0171; J0690; J1100; J2175; J2405; J2704; J2710; J2795; J3010; J3490; J7030; J7050; J7620-GY

== ENCOUNTER 2024-02-14 14:34 | Emergency (ER) | payer OTHER, MEDICAID ==
[2024-02-14 15:22] LABS: BASOPHILS ABSOLUTE AUTO 0.04 K/uL (0.00-0.10); BASOPHILS PERCENT AUTO 0.5 % (0.1-1.3); EOSINOPHILS ABSOLUTE AUTO 0.08 K/uL (0.00-0.40); HEMATOCRIT 36.8 % (34.3-46.0); HEMOGLOBIN 12.4 g/dL (11.2-15.5); IMMATURE GRAN PERCENT AUTO 0.3 % (0.0-0.7); LYMPHOCYTES ABSOLUTE AUTO 1.46 K/uL (0.8-3.3); LYMPHOCYTES PERCENT AUTO 18.8 % (11.4-47.7); MEAN CORPUSCULAR HEMOGLOBIN 29.8 pg (31.6-35.5); MEAN CORPUSCULAR HGB CONC 33.7 g/dL (31.6-35.5); MEAN CORPUSCULAR VOLUME 88.5 fL (81.4-99.0); MONOCYTES ABSOLUTE AUTO 0.57 K/uL (0.20-0.90); MONOCYTES PERCENT AUTO 7.3 % (3.3-12.6); NEUTROPHILS ABSOLUTE AUTO 5.61 K/uL (1.0-7.6); NEUTROPHILS PERCENT AUTO 72.1 % (40.0-78.1); PLATELET COUNT,PLT 363 K/uL (130-375); RED BLOOD CELL COUNT 4.16 M/uL (3.77-5.24); WHITE BLOOD CELL COUNT,WBC 7.8 K/uL (3.2-11.0)
[2024-02-14 15:25] LABS: IMMATURE GRAN ABSOLUTE AUTO 0.02 K/uL (0.00-0.23)
[2024-02-14] MEDS: HYDROmorphone 0.5 MG/0.5 ML Syringe IVPUSH ONE (15:29)
[2024-02-14 15:39] LABS: BLOOD UREA NITROGEN,BUN 8 mg/dL (7-18); CALCIUM 9.1 mg/dL (8.5-10.1); CARBON DIOXIDE,CO2 29 mmol/L (21-32); CHLORIDE,CL 103 mmol/L (100-108); CREATININE 1.2 mg/dL (0.6-1.0); ESTIMATED GFR 63 mL/min (>60); GLUCOSE RANDOM 111 mg/dL (74-106); POTASSIUM,K 3.5 mmol/L (3.6-5.2); SODIUM,NA 139 mmol/L (140-148)
[2024-02-14 15:40] LABS: ANION GAP 10.5 mmol/L (5.0-14.0)
[2024-02-14 15:46] LABS: A/G RATIO 1.2 (1.2-2.2); ALANINE AMINOTRANSFERASE,ALT 31 U/L (12-78); ALKALINE PHOSPHATASE 62 U/L (46-116); ASPARTATE AMNIOTRANSFERASE,AST 20 U/L (15-37); BILIRUBIN DIRECT 0.05 mg/dL (0.0-0.2); BILIRUBIN TOTAL 0.2 mg/dL (0.2-1.0); PROTEIN TOTAL,TP 7.3 g/dL (6.4-8.2)
[2024-02-14] MEDS: Iopamidol 612 MG/ML 100 ML Bottle IV ONE (16:46)
[2024-02-14] MEDS: Sodium Chloride 0.9% 80 ML IV SCH (16:46)
[2024-02-14] MEDS: HYDROmorphone 1 MG/ML Syringe IVPUSH ONE ×2 (17:24→20:04)
[2024-02-14 18:46] VITALS: BP 101/56; PULSE 81
== END 2024-02-14 20:53 ==
LOC: JP.ED 14:34
DX: S36.892A Contusion of other intra-abdominal organs, initial encounter (principal); S14.109A Unspecified injury at unspecified level of cervical spinal cord, initial encounter; J45.909 Unspecified asthma, uncomplicated; Z79.899 Other long term (current) drug therapy; Z90.710 Acquired absence of both cervix and uterus; Z88.2 Allergy status to sulfonamides; V28.41XA Electric (assisted) bicycle driver injured in noncollision transport accident in traffic accident, initial encounter; Y92.410 Unspecified street and highway as the place of occurrence of the external cause; Y93.55 Activity, bike riding
CPT/HCPCS: 36415; 70450; 71260; 72125; 74177; 76377; 80048; 80076; 83605; 83690; 85025; 96374; 96376; 99285; J1171; J3490; Q9967